=== PATIENT | female | born 1950 | race Caucasian/White ===

== ENCOUNTER 2024-11-20 10:18 | Emergency (ER) | payer OTHER, SELFPAY ==
[2024-11-20 10:37] VITALS: BP 118/72
--- NOTE | 2024-11-20 10:37 | ED.GENMED ---
ED Provider Triage
<Essence Barton [employer] - Last Filed: 11/20/24 10:43>
-
Patient seen by provider in Triage?: Seen in Triage
Attestation: A medical screening examination has been initiated by a qualified medical provider. Based on the assessment performed at this time, it has been determined that an emergent medical condition may exist and the patient has been informed
that further medical evaluation and possible additional diagnostic testing may be needed.
HPI: 74-year-old, patient took granddaughter to sales merchandising specialist, the sales merchandising specialist's office called her daughter, granddaughter, who is 8 years old said Paulie said 'I don't not feel well,' her hands shook and she had a paper in her hand, the paper fell
and she 'fell asleep.' She really got the sales merchandising specialist sales merchandising specialist called the daughter. EMS was called.
Patient's daughter states she last saw patient 7:20 and she was 'fine.'
Patient feels nauseous now but has not vomited patient denies headache. Denies diarrhea or constipation. No vomiting but feels nauseous now. Did not fall, was sitting at the time.
GENERAL: Alert , in no apparent distress
EYE: No visual abnormalities.
ENT: No visible abnormalities.
LUNGS: No acute respiratory distress
NEUROLOGICAL: Alert and oriented
SKIN: Skin intact. No visible changes.
MUSCULOSKELETAL: Moving extremities normally
PSYCH: Normal and appropriate interaction.
This is a medical evaluation conducted in person to initiate diagnostic evaluation and provide initial therapeutics. Please see further documentation by the treating clinician.
History of Present Illness
<Essence Barton NP - Last Filed: 11/20/24 10:43>
General
Chief Complaint: Fainting Sensation
Time Seen by Provider: 11/20/24 13:58
<Guillermo Groves PA-C - Last Filed: 11/20/24 15:33>
General
Source: patient
Exam Limitations: none
History of Present Illness
History of Present Illness:
74-year-old female with history of hypothyroidism presents after syncopal versus near syncopal episode earlier today. She came by EMS. She took her granddaughter to the sales merchandising specialist office. Granddaughter was not feeling well and they tested her
for the flu. Shortly after this test the patient was not feeling well she told her granddaughter this. She tried to stand up and walk and felt lightheaded. She sat down. Her granddaughter then described her falling asleep in the chair. Patient
remembers waking up with the other staff members in the room. She was still in the chair. There is no preceding chest pain. She was nauseous at the time. There was no headache. Since waiting in the waiting room over 3 hours she feels much
better. Per the family that is with her she looks much better. She was nauseous en route however the nausea has resolved as well. No recent fever chills cough shortness of breath. No travel or surgery. No leg swelling or calf pain.
Phy Exam
<Guillermo Groves PA-C - Last Filed: 11/20/24 15:33>
Physical Exam
Physical Exam:
General: Well-appearing female no acute respiratory distress
HEENT: Normocephalic atraumatic
Heart: Regular rate and rhythm no murmurs
Lungs: Clear no wheeze
Abdomen is soft nontender nondistended no guarding rebound normal bowel sounds
Neurologic exam: Alert no facial asymmetry or slurred speech no drift on exam good strength to the upper and lower extremities
Extremities: No cyanosis or edema
Course
<Essence Barton NP - Last Filed: 11/20/24 10:43>
Orders/Labs/Results
Orders:
Orders
11/20/24 10:41
Electrocardiogram (*1) Urgent
Reason for Study: Syncope
EKG- Treatment ONCE
11/20/24 10:57
Complete Blood Count/With Diff Urgent
Comprehensive Metabolic Panel Urgent
TSH Reflex To Free T4 Urgent
11/20/24 14:13
Cardiac Monitoring- Treatment ONCE
0.9% Sodium Chloride 1000 ml [Nss] 1,000 ml IV BOLUS
Abnormal Lab Results
11/20/24 11/20/24
10:44 10:57
WBC 13.3 H 10^3/uL
(4.8-10.8)
RBC 4.17 L 10^6/uL
(4.20-5.40)
Abs Immat Gran (auto) 0.1 H 10^3/uL
(0-0.05)
Absolute Neuts (auto) 9.3 H 10^3/uL
(1.4-6.5)
Absolute Monos (auto) 0.7 H 10^3/uL
(0.1-0.6)
Immature Gran % 0.6 H %
(0-0.5)
BUN 26 H mg/dl
(7-17)
Glucose 153 H mg/dl
(70-99)
POC Glucose 165 H mg/dl
(70-99)
11/20/24 10:57
11/20/24 10:57
Vital Signs
Initial and Last Documented VS:
Initial Vital Signs
Temp Pulse Resp BP Pulse Ox
98.4 F 70 16 118/72 98
11/20/24 10:37 11/20/24 10:37 11/20/24 10:37 11/20/24 10:37 11/20/24 10:37
Last Documented Vital Signs
Temp Pulse Resp BP Pulse Ox
97.8 F 82 19 141/70 98
11/20/24 12:20 11/20/24 13:32 11/20/24 13:32 11/20/24 13:32 11/20/24 13:32
<Guillermo Groves PA-C - Last Filed: 11/20/24 15:33>
Orders/Labs/Results
Orders:
Orders
11/20/24 10:41
Electrocardiogram (*1) Urgent
Reason for Study: Syncope
EKG- Treatment ONCE
11/20/24 10:57
Complete Blood Count/With Diff Urgent
Comprehensive Metabolic Panel Urgent
TSH Reflex To Free T4 Urgent
11/20/24 14:13
Cardiac Monitoring- Treatment ONCE
0.9% Sodium Chloride 1000 ml [Nss] 1,000 ml IV BOLUS
Abnormal Lab Results
11/20/24 11/20/24
10:44 10:57
WBC 13.3 H 10^3/uL
(4.8-10.8)
RBC 4.17 L 10^6/uL
(4.20-5.40)
Abs Immat Gran (auto) 0.1 H 10^3/uL
(0-0.05)
Absolute Neuts (auto) 9.3 H 10^3/uL
(1.4-6.5)
Absolute Monos (auto) 0.7 H 10^3/uL
(0.1-0.6)
Immature Gran % 0.6 H %
(0-0.5)
BUN 26 H mg/dl
(7-17)
Glucose 153 H mg/dl
(70-99)
POC Glucose 165 H mg/dl
(70-99)
11/20/24 10:57
11/20/24 10:57
Vital Signs
Initial and Last Documented VS:
Initial Vital Signs
Temp Pulse Resp BP Pulse Ox
98.4 F 70 16 118/72 98
11/20/24 10:37 11/20/24 10:37 11/20/24 10:37 11/20/24 10:37 11/20/24 10:37
Last Documented Vital Signs
Temp Pulse Resp BP Pulse Ox
97.8 F 82 19 141/70 98
11/20/24 12:20 11/20/24 13:32 11/20/24 13:32 11/20/24 13:32 11/20/24 13:32
<Guillermo Groves PA-C - Last Filed: 11/20/24 15:33>
MDM/Problems Addressed
Differential Diagnosis Includes:
Syncope versus near syncope. Patient had preceding symptoms. I suspect likely vasovagal event related to the doctors visits or onset of an illness. Do not suspect arrhythmia. EKG shows sinus rhythm with a rate of 69. BUN is slightly elevated
and the blood work to suggest mild volume depletion. Will hydrate. Patient is feeling much better since waiting in the waiting room.
<Guillermo Groves PA-C - Last Filed: 11/20/24 15:33>
*Critical Care Note
Total Time (30-74mins, 75-104mins- exclusive of procedures): Not Applicable
<Guillermo Groves PA-C - Last Filed: 11/20/24 15:33>
Update Note
Update Note:
Patient received IV fluids here. She ambulated to the bathroom without any difficulty feeling much better. I suspect overall this is a vasovagal response. Family reassured. Recommended hydration at home. Stable for discharge
ED Attending Note
<Essence Barton NP - Last Filed: 11/20/24 10:43>
-
Portions of this chart may have been created with voice recognition software.� Occasional wrong word or��sound alike� substitutions may have occurred due to the inherent limitations of voice recognition software.
Discharge Plan
Departure
Patient Disposition: Home (Routine Discharge)
Date of Disposition: 11/20/24
Time of Disposition: 15:32
Patient with high blood pressure during this ER visit?: No
Discharge Problem:
Syncope, vasovagal
Instructions: Syncope (Fainting) (DC)
Referrals:
Vince Keenan MD [Family Provider] -
Activity Restrictions/Additional Instructions:
Stay hydrated at home. Return if worse otherwise follow-up with your doctor
Interventions
Interventions:
*Risk Screen - Suicide Last Done: 11/20/24 10:37
*General Assessment Last Done: 11/20/24 14:21
*Neglect/Abuse Screening Last Done: 11/20/24 14:21
*ED COVID-19 Vaccine History Last Done: 11/20/24 14:21
ED- Cardiac Assessment Last Done: 11/20/24 14:21
ED- Neurological Assessment Last Done: 11/20/24 14:21
Discharge Date and Time
Print Language: BRAZILIAN
[2024-11-20 10:45] LABS: Glucose - Point of Care 165 mg/dl (70-99)
[2024-11-20 11:19] LABS: % Basophils 0.5 % (0-2); % Eosinophils 0.9 % (0-6); % Immature Granulocytes 0.6 % (0-0.5); Absolute Basophils 0.1 10^3/uL (0-0.2); Absolute Eosinophils 0.1 10^3/uL (0-0.7); Absolute Immature Granulocytes 0.1 10^3/uL (0-0.05); Absolute Lymphocytes 3.1 10^3/uL (1.2-3.4); Absolute Monocytes 0.7 10^3/uL (0.1-0.6); Absolute Neutrophils 9.3 10^3/uL (1.4-6.5); Hematocrit 37.7 % (37.0-47.0); Hemoglobin 12.9 g/dL (12.0-16.0); Mean Corp Hgb Conc. 34.2 g/dL (33.0-37.0); Mean Corpuscular Hgb 30.9 pg (27.0-31.0); Mean Corpuscular Volume 90.4 fL (81.0-99.0); Mean Platelet Volume 9.2 fL (7.4-10.4); Nucleated Red Blood Cells % 0 %; Platelet Count 328 10^3/uL (130-400); Red Blood Cell Count 4.17 10^6/uL (4.20-5.40); White Blood Cell Count 13.3 10^3/uL (4.8-10.8)
[2024-11-20 11:32] LABS: ALT (SGPT) 23 U/L (0-35); AST (SGOT) 26 U/L (14-36); Albumin 4.5 g/dl (3.5-5.0); Alkaline Phosphatase 103 U/L (38-126); Blood Urea Nitrogen 26 mg/dl (7-17); Calcium 9.8 mg/dl (8.4-10.2); Carbon Dioxide 23 mmol/L (22-30); Chloride 102 mmol/L (98-107); Glucose 153 mg/dl (70-99); Potassium 3.9 mmol/L (3.5-5.1); Sodium 138 mmol/L (135-145); Total Bilirubin 0.4 mg/dl (0.2-1.3); Total Protein 6.7 g/dl (6.3-8.2); eGFR > 60.00
[2024-11-20 12:02] LABS: TSH Reflex To Free T4 3.65 uIU/ml (0.47-4.68)
[2024-11-20 12:20] VITALS: BP 149/68
[2024-11-20 13:32] VITALS: BP 141/70
[2024-11-20] MEDS: NSS 1000 IV (14:19)
[2024-11-20 16:03] VITALS: BP 135/81
== END 2024-11-20 16:06 | disposition home or self-care (01) ==
LOC: EMR 10:18
PROVIDERS: Registered Nurse; EMERGENCY PHYSICIAN Emergency Medicine; FAMILY PHYSICIAN Internal Medicine
DX: R55 Syncope and collapse (principal); R11.0 Nausea; E86.9 Volume depletion, unspecified; Z88.2 Allergy status to sulfonamides
CPT/HCPCS: 99284; 96360; 80053; 82962; 84443; 85025; 93005

== ENCOUNTER → 2025-08-02 08:44 | Outpatient (REF) | payer OTHER, SELFPAY ==
[2025-08-02 09:44] LABS: Hematocrit 38.7 % (37.0-47.0); Hemoglobin 12.8 g/dL (12.0-16.0); Mean Corp Hgb Conc. 33.1 g/dL (33.0-37.0); Mean Corpuscular Volume 91.5 fL (81.0-99.0); Nucleated Red Blood Cells % 0 %; Red Cell Dist. Width 13.6 % (11.5-14.5)
[2025-08-02 13:20] LABS: Blood Urea Nitrogen 18 mg/dl (7-17); Calcium 9.9 mg/dl (8.4-10.2); Carbon Dioxide 26 mmol/L (22-30); Chloride 106 mmol/L (98-107); Glucose 149 mg/dl (70-99); Potassium 4.8 mmol/L (3.5-5.1); Sodium 138 mmol/L (135-145); eGFR > 60.00
== END ==
LOC: REG 08:44
PROVIDERS: ATTENDING PHYSICIAN Orthopaedic Surgery; FAMILY PHYSICIAN Internal Medicine
DX: Z01.818 Encounter for other preprocedural examination (principal)
CPT/HCPCS: 36415; 80048; 85025